=== PATIENT | male | born 1990 | race Two or more races ===

== ENCOUNTER 2020-12-15 07:48 | Emergency (ER) | payer OTHER ==
[~2020-12-15] VITALS: Ht 185.4 cm; Wt 99.1 kg
[2020-12-15 07:59] VITALS: BP 129/85
== END 2020-12-15 10:18 | disposition home or self-care (01) ==
LOC: ER 07:49
DX: R09.81 Nasal congestion (principal); Z20.822 Contact with and (suspected) exposure to COVID-19; R11.0 Nausea; R10.9 Unspecified abdominal pain
CPT/HCPCS: 87635; 99283; C9803

== ENCOUNTER 2021-03-14 09:30 | Emergency (ER) | payer OTHER ==
[~2021-03-14] VITALS: Ht 185.4 cm; Wt 97.0 kg
[2021-03-14 09:41] VITALS: BP 130/86
[2021-03-14] MEDS ORDERED: acetaminophen 325mg tablet PO ONE (09:50)
[2021-03-14] MEDS ORDERED: ondansetron 4mg rapidly disintigrating tab PO ONE (09:50)
[2021-03-14] MEDS ORDERED: ibuprofen tablet 400 MG TABLET PO ONE (10:00)
[2021-03-14] MEDS ORDERED: ONDA4TAB12 PO (10:04)
== END 2021-03-14 10:44 | disposition home or self-care (01) ==
LOC: ER 09:33
DX: R68.84 Jaw pain (principal); R51.9 Headache, unspecified; R22.0 Localized swelling, mass and lump, head; R11.0 Nausea
CPT/HCPCS: 99283

== ENCOUNTER 2021-05-14 09:09 | Emergency (ER) | payer OTHER ==
[~2021-05-14] VITALS: Ht 185.4 cm; Wt 97.3 kg
[~2021-05-14 09:09] MED LIST: ONDA4TAB12 PO
[2021-05-14 09:27] VITALS: BP 123/75
--- NOTE | 2021-05-14 10:49 | NUR ---
PT PLACED IN GOWN AWAITING MD BENNETT
[2021-05-14] MEDS: ketorolac tromethamine 15mg/ml inj. IM ONE (11:58)
== END 2021-05-14 12:13 | disposition home or self-care (01) ==
LOC: ER 09:10
DX: M76.62 Achilles tendinitis, left leg (principal); M76.61 Achilles tendinitis, right leg; M79.605 Pain in left leg; M79.604 Pain in right leg; Z79.899 Other long term (current) drug therapy
CPT/HCPCS: 96372; 99283; J1885

== ENCOUNTER 2022-02-12 08:37 | Emergency (ER) | payer OTHER ==
[~2022-02-12] VITALS: Ht 185.4 cm; Wt 96.8 kg
[2022-02-12 08:44] VITALS: BP 121/73
[2022-02-12] MEDS ORDERED: ketorolac trometh. 30mg/ml inj. IM ONE (10:45)
== END 2022-02-12 11:12 | disposition home or self-care (01) ==
LOC: ER 08:38
DX: S46.912A Strain of unspecified muscle, fascia and tendon at shoulder and upper arm level, left arm, initial encounter (principal); S46.911A Strain of unspecified muscle, fascia and tendon at shoulder and upper arm level, right arm, initial encounter; X58.XXXA Exposure to other specified factors, initial encounter; Y93.89 Activity, other specified; Y92.89 Other specified places as the place of occurrence of the external cause; Y99.8 Other external cause status
CPT/HCPCS: 96372; 99283; J1885

== ENCOUNTER 2023-03-03 08:00 | Emergency (ER) | payer OTHER ==
[~2023-03-03] VITALS: Ht 185.4 cm; Wt 97.3 kg
[2023-03-03] MEDS ORDERED: ketorolac trometh inj. 60 MG/2 ML VIAL IM ONE (10:10)
[2023-03-03] MEDS ORDERED: ACET-2119 PO (10:41)
[2023-03-03 10:50] VITALS: BP 129/90; PULSE 63; RESP 16; TEMP 98; O2SAT 99
== END 2023-03-03 10:54 | disposition home or self-care (01) ==
LOC: ER 08:00
DX: M25.562 Pain in left knee (principal); Z79.899 Other long term (current) drug therapy
CPT/HCPCS: 73564; 96372; 99283; J1885; A6449

== ENCOUNTER 2023-03-04 08:24 | Emergency (ER) | payer OTHER ==
[~2023-03-04] VITALS: Ht 185.4 cm; Wt 100.0 kg
[~2023-03-04 08:24] MED LIST changes: +ACET-2119 PO
[2023-03-04 08:28] VITALS: BP 125/67; PULSE 67; RESP 16; TEMP 98.3; O2SAT 98
== END 2023-03-04 09:29 | disposition home or self-care (01) ==
LOC: ER 08:24
DX: M25.562 Pain in left knee (principal); Z79.899 Other long term (current) drug therapy
CPT/HCPCS: 99281